=== PATIENT | male | born 1980 | race Caucasian/White ===

== ENCOUNTER → 2017-03-09 | Outpatient (CLI) | payer OTHER ==
--- NOTE | 2017-03-11 08:45 | MRI ---
EXAM DESCRIPTION: MRI left knee CLINICAL HISTORY: Knee pain and swelling. Assess for lateral meniscal tear COMPARISON: None. TECHNIQUE: Multiplanar, multisequence MR images of the left knee FINDINGS: Thickening with intraligamentous fluid signal intensity interdigitating throughout the fibers of the ACL. This intraligamentous ganglion involves the ACL from the femoral origin to the tibial attachment with an associated component in the anterior intercondylar notch extending into the tibial root attachment of the anterior horn lateral meniscus. There is a intrameniscal cyst along the superior margin of the anterior horn lateral meniscus which measures about 7 x 6 x 4 mm. This intrameniscal cyst is originating from this same process. There is no tear of the meniscus. No abnormality of the articular surfaces lateral meniscus. No lateral femorotibial chondrosis No medial meniscal tear. Small region of chondrosis along the lateral aspect weightbearing medial tibia with chondral signal heterogeneity over about 6 x 7 mm. No femoral condyle chondrosis No abnormality of the PCL, MCL and fibular collateral ligaments Patellar chondrosis with chondral signal heterogeneity at the apex. No thinning or defect. Femoral trochlear chondrosis with high-grade chondral thinning and irregularity, grade 3 over about 1.9 cm craniocaudal by 1.2 cm transverse. No subchondral marrow abnormality Biceps femoris, popliteus and iliotibial band tendons are normal Patellar and quadriceps tendons and tendons of the posterior medial knee are intact Small joint effusion. Medial patellar plica. No focal synovial abnormality or intra-articular loose body IMPRESSION: Intraligamentous ganglion ACL, sequela of remote interstitial partial tear. There is an extra ligamentous component of ganglion/ fibrosis in the anterior intercondylar notch. 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
== END | disposition home or self-care (01) ==
LOC: MRI 10:10
PROVIDERS: ATTEND Family Medicine
DX: S83.282A Other tear of lateral meniscus, current injury, left knee, initial encounter (principal); X58.XXXA Exposure to other specified factors, initial encounter